=== PATIENT | female | born 1960 | race Caucasian/White ===

== ENCOUNTER 2017-12-12 11:37 | Day surgery (SDC) | payer OTHER ==
[2017-12-26 12:49] LABS: ADD MAN DIFF? NO
[2017-12-26 12:53] LABS: WHITE BLOOD COUNT 7.8 10^3/ul (4.8-10.8)
[2017-12-26 12:53] LABS: BASOPHILS % 0.5 % (0.0-2.0); EOSINOPHILS # 0.1 10^3/ul (0.0-0.5); EOSINOPHILS % 1.4 % (0.0-7.0); HEMATOCRIT 34.8 % (37.0-47.0); HEMOGLOBIN 10.9 g/dl (12.0-16.0); LYMPHOCYTES # 2.6 10^3/ul (0.8-2.9); LYMPHOCYTES % 33.6 % (15.0-51.0); MEAN CORPUSCULAR HEMOGLOBIN 27.1 pg (29.0-33.0); MEAN CORPUSCULAR HGB CONC 31.3 g/dl (32.0-37.0); MEAN CORPUSCULAR VOLUME 86.6 fl (82.0-101.0); MEAN PLATELET VOLUME 10.5 fl (7.4-10.4); MONOCYTE # 0.5 10^3/ul (0.3-0.9); MONOCYTES % 5.9 % (0.0-11.0); NEUTROPHIL # 4.5 10^3/ul (1.6-7.5); NEUTROPHILS % 58.1 % (39.0-77.0); PLATELET COUNT 253 10^3/UL (140-415); RED BLOOD COUNT 4.02 10^6/ul (4.20-5.40); RED CELL DISTRIBUTION WIDTH 13.8 % (11.5-14.5)
[2017-12-26] MEDS ORDERED: CEFAZOLIN 1 GM/50 ML (PMX) 50 ML IVPB (13:00)
[2017-12-26 13:11] LABS: ALANINE AMINOTRANSFERASE 46 IU/L (13-69); ALBUMIN 4.7 g/dl (3.3-4.9); ALKALINE PHOSPHATASE 48 IU/L (42-121); ANION GAP 18 (8-16); ASPARTATE AMINO TRANSFERASE 39 IU/L (15-46); CARBON DIOXIDE 22 mmol/L (21-31); CHLORIDE 110 mmol/L (97-110); GLUCOSE 65 mg/dl (70-220); TOTAL PROTEIN 8.3 g/dl (6.1-8.1)
[2017-12-26 13:14] LABS: POTASSIUM 4.8 mmol/L (3.5-5.1)
[2017-12-26 13:16] LABS: BLOOD UREA NITROGEN 35 mg/dl (7-20); CREATININE 1.12 mg/dl (0.44-1.00); SODIUM 145 mmol/L (135-144)
[2017-12-26 13:22] LABS: INR 0.99; PROTIME 13.2 Sec (11.9-14.9)
[2017-12-26 13:23] LABS: PARTIAL THROMBOPLASTIN TIME 31.4 Sec (25.0-35.0)
[2017-12-26] MEDS ORDERED: DEXTROSE 50% 50 ML SYRINGE (14:03)
[2017-12-26] MEDS: DEXTROSE 50% 50 ML SYRINGE IV ×2 (14:07→16:11)
[2017-12-26 15:32] LABS: ADD UMIC NO; UR ASCORBIC ACID NEGATIVE (NEGATIVE); UR BILIRUBIN (Dip) NEGATIVE (NEGATIVE); UR BLOOD (Dip) NEGATIVE (NEGATIVE); UR CLARITY CLEAR (CLEAR); UR COLOR STRAW (YELLOW); UR GLUCOSE (Dip) NEGATIVE (NEGATIVE); UR KETONES (Dip) NEGATIVE (NEGATIVE); UR LEUKOCYTE ESTERASE (Dip) NEGATIVE Leu/ul (NEGATIVE); UR NITRITE (Dip) NEGATIVE (NEGATIVE); UR SPECIFIC GRAVITY (Dip) 1.013 (1.003-1.030); UR TOTAL PROTEIN (Dip) NEGATIVE (NEGATIVE); UR UROBILINOGEN (Dip) NEGATIVE (NEGATIVE)
[2017-12-26] MEDS: DEXTROSE 5%-0.45% NACL 1,000 ML IV (16:11)
[2017-12-26] MEDS ORDERED: HEPARIN 1000 UNITS/ML 10 ML INJ (16:37)
[2017-12-26] MEDS ORDERED: LIDOCAINE 1% (MDV) 20 ML INJ (16:37)
[2017-12-26] MEDS ORDERED: IODIXANOL LOCM 100 ML BTL (16:37)
[2017-12-26] MEDS ORDERED: VERAPAMIL 5 MG INJ (16:38)
[2017-12-26] MEDS ORDERED: FENTAnyl 50 MCG/ML VIAL (16:38)
[2017-12-26] MEDS ORDERED: MIDAZOLAM 1 MG/ML 2 ML INJ (16:38)
[2017-12-26] MEDS ORDERED: NITROGLYCERIN (IC) 100 MCG/ML INJ (16:38)
[2017-12-26] MEDS ORDERED: ONDANSETRON 4 MG INJ (17:37)
[2017-12-26] MEDS: ACETAMINOPHEN 325 MG TAB PO (18:38)
== END 2017-12-26 20:55 | disposition home or self-care (01) ==
LOC: SDS 12-26 11:35
DX: I25.10 Atherosclerotic heart disease of native coronary artery without angina pectoris (principal); I10 Essential (primary) hypertension; R94.39 Abnormal result of other cardiovascular function study
CPT/HCPCS: 80053; 81003; 82962; 85025; 85610; 85730; 93005; 93458